=== PATIENT | female | born 1975 | race African-American/Black ===

== ENCOUNTER 2021-10-31 06:15 | Emergency (ER) | payer MEDICAID ==
[~2021-10-31] VITALS: Ht 167.6 cm; Wt 100.5 kg
[2021-10-31 06:27] VITALS: TEMP 98.3
[2021-10-31 06:48] LABS: HEMATOCRIT 42.5 % (37.0-47.0); HEMOGLOBIN 14.4 g/dl (12.5-16.0); MEAN CELL VOLUME 86 fl (80.0-100.0); MEAN CORPUSCULAR HEMOGLOBIN 29 pg (27-31); MEAN CORPUSCULAR HGB CONC 34 g/dl (33.0-37.0); MEAN PLATELET VOLUME 10.4 fl (7.4-10.4); PLATELET COUNT 360 K/mm3 (130-400); RED BLOOD COUNT 4.96 M/mm3 (4.10-5.30); REDCELL DISTRIBUTION WIDTH-CV 13.1 % (11.5-14.5)
[2021-10-31 06:54] LABS: ALANINE AMINOTRANSFERASE 20 U/L (0-55); ALKALINE PHOSPHATASE 85 U/L (40-150); ANION GAP 11 mmol/L (7-16); AST,SGOT 19 U/L (5-34); BILIRUBIN,TOTAL 0.3 mg/dL (0.2-1.2); BLOOD UREA NITROGEN 11 mg/dL (7-19); CALCIUM 9.3 mg/dL (8.4-10.2); CARBON DIOXIDE 24 mmol/L (22-29); CHLORIDE 103 mmol/L (98-107); GLUCOSE 111 mg/dL (70-99); POTASSIUM 3.8 mmol/L (3.5-4.5); SODIUM 138 mmol/L (136-145); TOTAL PROTEIN 7.6 gm/dL (6.2-8.1)
[2021-10-31 07:04] LABS: TROPONIN-I < 0.010 ng/mL (0.00-0.033)
[2021-10-31 07:49] LABS: EOSINOPHIL 17 % (0-4); LYMPHOCYTE 28 % (20.0-51.0); NEUTROPHILS 49 % (42.0-75.2)
[2021-10-31 07:50] VITALS: BP 130/86; PULSE 75
[2021-10-31 07:50] LABS: PLATELET ESTIMATE NORMAL (NORMAL)
== END 2021-10-31 07:57 | disposition home or self-care (01) ==
LOC: COL.ER 06:15
PROVIDERS: Emergency Medicine
DX: R53.81 Other malaise (principal)
CPT/HCPCS: J2405; J7030